=== PATIENT | male | born 1955 | race Caucasian/White ===

== ENCOUNTER → 2016-07-22 | Outpatient (CLI) | payer BC ==
[~2016-07-22] MED LIST: ALLP300T PO; FAMO40OR3 PO; HCT25T PO; METO100T5 PO; TELM40T PO
--- NOTE | 2016-07-22 11:58 | Diagnostic Imaging Report ---
PROCEDURE: US Bilateral lower extremity arterial. TECHNIQUE: Multiple real-time grayscale images are obtained through both lower extremity arterial systems with color Doppler imaging and color Doppler spectral analysis. INDICATION: Claudication. FINDINGS: In the right lower extremity, there is color flow demonstrated from the right common femoral to the dorsalis pedis and posterior tibial arteries. There are mixed triphasic and biphasic waveforms in the femoropopliteal segments and biphasic waveforms in the infrapopliteal arteries. There is slightly diminished flow velocity in the dorsalis pedis artery of 37 cm/s, otherwise the velocities range from 46-120 cm/s in the segments of the right lower extremity arteries with no evidence of significant stenosis. The grayscale images demonstrate no significant plaque. In the left lower extremity, there are no significant areas of plaque seen. There is color Doppler demonstrated in the arteries from the common femoral to the dorsalis pedis and posterior tibial arteries. There is a 2 cm long stent in the popliteal artery with normal color flow seen within its lumen. There are triphasic waveforms seen in the femoropopliteal segments with transition to biphasic waveforms in the dorsalis pedis and posterior tibial. The dorsalis pedis demonstrates diminished flow velocity of 28 cm/s with otherwise normal velocities in the more proximal arteries and the posterior tibial artery ranging from 43-120 cm/s. IMPRESSION: Slightly diminished flow velocity in the dorsalis pedis arteries bilaterally. No ultrasound evidence of high-grade focal stenosis seen. Dictated by: Dictated on workstation # [id number]
== END ==
LOC: RAD 08:44
PROVIDERS: ATTEND Nurse Practitioner
DX: I70.213 Atherosclerosis of native arteries of extremities with intermittent claudication, bilateral legs (principal)
CPT/HCPCS: 93925

== ENCOUNTER 2017-04-11 05:38 | Outpatient (CLI) | payer BC ==
[~2017-04-11] VITALS: Ht 177.8 cm; Wt 78.9 kg
[2017-04-11] MEDS ORDERED: TELM40TA3 PO (11:09)
[2017-04-11] MEDS ORDERED: METO-272 PO (11:09)
[2017-04-11] MEDS ORDERED: HYDR25TA4 PO (11:09)
[2017-04-11] MEDS ORDERED: CLOP75TA28 PO (11:09)
[2017-04-11] MEDS ORDERED: ALLO300T2 PO (11:09)
[2017-04-11] MEDS ORDERED: FAMO40TA6 PO (11:09)
== END 2017-04-11 11:14 ==
LOC: PREOP 05:38
PROVIDERS: ATTEND Surgery
DX: Z01.818 Encounter for other preprocedural examination (principal); Z86.010 Personal history of colon polyps

== ENCOUNTER 2017-04-13 10:15 | Day surgery (SDC) | payer BC ==
[~2017-04-13] VITALS: Ht 177.8 cm; Wt 78.9 kg
[~2017-04-13 10:15] MED LIST changes: +ALLO300T2 PO; +CLOP75TA28 PO; +FAMO40TA6 PO; +HYDR25TA4 PO; +METO-272 PO; +TELM40TA3 PO
[2017-04-13] MEDS ORDERED: LIDOCAINE JELLY 2% (XYLOCAINE) 5 ML TUBE MM PRN (10:30)
[2017-04-13 10:36] VITALS: BP 133/82
[2017-04-13] MEDS: NS IV 500 ML 500 ML IV PRN ×3 (10:45→14:47)
--- NOTE | 2017-04-13 11:23 | Progress Note-Pre Operative ---
Pre-Operative Progress Note H&P Reviewed The H&P was reviewed, patient examined and no changes noted. Date Seen by Provider: Apr 13, 2017 Time Seen by Provider: 11:00 Date H&P Reviewed: Apr 13, 2017 Time H&P Reviewed: 11:00 Pre-Operative Diagnosis: hx colon polyp VERO MAY MD Apr 13, 2017 11:23 am
--- NOTE | 2017-04-13 11:23 | Conscious Sedation/ASA ---
Conscious Sedation Pre-Proced Time Reviewed: 11:00 ASA Class: 2 Airway Mallampati Classification: (yocha dehe appropriate class) I. II. III, IV Lungs Heart ASA score ASA 1: a normal healthy patient ASA 2: a patient with a mild systemic disease (mid diabetes, controlled hypertension, obesity ASA 3: a patient with a severe systemic disease that limits activity (angina , COPD, prior Myocardial infarction) ASA 4: a patient with an incapacitating disease that is a constant threat to life (CHF, renal failure) ASA 5: a moribund patient not expected to survive 24 hrs. (ruptured aneurysm) ASA 6: a declared brain patient whose organs are being harvested. For emergent operations, add the letter E after the classification Grade 2 Sedation Plan: Analgesia, Amnesia, Plan communicated to team members, Discussed options with patient/fam, Discussed risks with patient/fam Note The patient is an appropriate candidate to undergo the planned procedure, sedation, and anesthesia. The patient immediately re-assessed prior to indication. VERO MAY MD Apr 13, 2017 11:23 am
[2017-04-13] MEDS ORDERED: ONDANSETRON 4 MG/2 ML (SDV) Z0FRAN IV PRN (11:30)
[2017-04-13] MEDS ORDERED: HYDROcodone/APAP 5 MG/325 MG (LORTAB) TAB PO PRN (11:30)
[2017-04-13] MEDS ORDERED: morphine INJ 10 MG/ML 1ML (SYR OR VIAL) IV PRN (11:30)
[2017-04-13] MEDS ORDERED: ACETAMINOPHEN 325 MG TABLET/CAPLET (TYLENOL) PO PRN (11:30)
[2017-04-13] MEDS ORDERED: LIDOCAINE JELLY 2% (XYLOCAINE) 5 ML TUBE ONE (12:52)
[2017-04-13] MEDS ORDERED: fentaNYL INJECTION 100 MCG/2 ML AMP ONE ×3 (12:52→14:00)
[2017-04-13] MEDS ORDERED: MIDAZOLAM 2 MG/2 ML (VERSED) VIAL ONE ×5 (12:52→13:50)
[2017-04-13] MEDS: fentaNYL INJECTION 100 MCG/2 ML AMP IVP PRN ×6 (13:07→14:10)
[2017-04-13] MEDS ORDERED: NS IV 500 ML 500 ML ONE ×2 (13:15→14:36)
[2017-04-13] MEDS: MIDAZOLAM 2 MG/2 ML (VERSED) VIAL IVP PRN ×5 (13:17→13:59)
[2017-04-13] MEDS ORDERED: PROPOFOL INJECTION 50 ML IV ONE (14:11)
--- NOTE | 2017-04-13 14:46 | Progress Note-Post Operative ---
Post-Operative Progess Note Surgeon (s)/Report Analyst (s) Surgeon VERO MAY MD Report Analyst: none Pre-Operative Diagnosis hx colon polyp Post-Operative Diagnosis chronic stage 2 ext and int hemorrhoids, rectal polyp(2mm), moderate sigmid diverticulosis, ascending polyp(3mm). Procedure & Operative Findings Date of Procedure 04/13/17 Procedure Performed/Findings Colonoscopy with bx. Anesthesia Type MAC Estimated Blood Loss Estimated blood loss (mL): minimal Specimens/Packing Specimens Removed rectal and ascending polyp VERO MAY MD Apr 13, 2017 2:46 pm
--- NOTE | 2017-04-13 14:47 | Discharge Inst-Surgical ---
D/C Lap Instructions-LALO Follow Up 5 years Activity as tolerated High Fiber Diet 25g or more per day Avoid Alcohol, Caffeine, Spicy [place] and Acid foods. Drink 64 fluid oz or more of fluids per day. Symptoms to Report: Fever over 101 degree F, Nausea/Vomiting If any problems/questions: Contact your physician or go to Emergency Room VERO MAY MD Apr 13, 2017 2:47 pm
--- NOTE | 2017-04-13 14:48 | Progress Note-Standard ---
Standard Progress Note Progress Notes/Assess & Plan Date Seen by Provider: Apr 13, 2017 Time Seen by Provider: 14:15 Progress/Assessment & Plan Called to endoscopy for rescue sedation. Patient had already received 10mg of versed and 300mcg of fentanyl when called. Propofol drip started for sedation. After approx 1.5 min of medication. Patient sedated enough to proceed with procedure. Tolerated rest of procedure well. 400 mg propofol given for procedure. Care back to Endo RN. VSS. JOSIE BAUER CRNA Apr 13, 2017 14:48
[2017-04-13 15:15] VITALS: BP 127/74
[2017-04-13 15:45] VITALS: BP 127/80
[2017-04-13 15:50] VITALS: BP 127/80
--- NOTE | 2017-04-14 02:59 | OPERATIVE REPORT ---
DATE OF SERVICE: 04/13/2017 ATTENDING PRIMARY CARE PHYSICIAN: Dr. Alcira Watters. PREOPERATIVE DIAGNOSIS: History of tubulovillous adenoma. POSTOPERATIVE DIAGNOSES: Chronic stage II external and internal hemorrhoids, polyp of the rectum 2 mm in size, moderate sigmoid diverticulosis, polyp of the ascending colon 3 mm in size. PROCEDURE: Colonoscopy with biopsy. SURGEON: Dr. May. ANESTHESIA: Monitored anesthesia care. ESTIMATED BLOOD LOSS: Minimal. FINDINGS: Chronic stage II external and internal hemorrhoids. Prostate gland was palpable and appeared normal. There was moderate sigmoid diverticulosis. Rectal polyp approximately 2 mm in size. There was a larger pedunculated polyp of the ascending colon, approximately 3 mm in size. DISPOSITION: The patient tolerated the procedure well. INDICATIONS: The patient is a 62-year-old male in need of followup colonoscopy. His last one was in 2009 where three polyps were identified, one was hyperplastic, another was a tubular adenoma and the other one was a tubulovillous adenoma. He reports that otherwise he is doing well and does not report any major issues with diarrhea, no constipation as well as no red blood per rectum or any dark tarry stools. He also does not report any family history of colon cancer. DESCRIPTION OF PROCEDURE: The patient was brought to the endoscopy suite, laid in the left lateral decubitus position. After adequate IV pain and sedating medications and monitored anesthesia care, a digital rectal examination was performed. Chronic stage II external and internal hemorrhoids were identified, which were not actually edematous nor inflamed and no bleeding. Normal sphincter tone was felt and there were no palpable masses. The endoscope was then intubated to the anus and rectum, gently insufflated. The endoscope was then advanced to the [facility] [place] in the rectum. At the level of the rectum, a polyp identified which was small approximately 2 mm in size was identified. This was biopsied and destroyed using forceps and electrocautery with visualization of good hemostasis. Endoscope was then advanced to the sigmoid colon where a moderate sigmoid diverticulosis was identified. There were no mucosal inflammatory changes to indicate any active diverticulitis. The endoscope was then advanced to the remainder of the descending, transverse, and ascending colon. At the ascending colon, a pedunculated polyp approximately 3 mm in size was identified. This was also biopsied and destroyed at the base using forceps and electrocautery with visualization of good hemostasis. The cecum appeared normal. The endoscope was then slowly withdrawn while taking a second look and suctioning of residual air with no additional findings. The patient tolerated the procedure well. We will have him continue with high fiber diet with at least 30 grams of fiber per day as well as at least 64 fluid ounces of water daily to promote soft stools on a daily basis. We will recommend a followup colonoscopy in approximately 5 years. Job ID: [id number] DocumentID: [id number] Dictated Date: 04/13/2017 14:51:24 Human Resource Assistant Date: 04/14/2017 00:38:45 Dictated By: VERO MAY MD
== END 2017-04-13 16:00 | disposition home or self-care (01) ==
LOC: ENDO 10:15
PROVIDERS: ATTEND Surgery
DX: Z12.11 Encounter for screening for malignant neoplasm of colon (principal); K63.5 Polyp of colon; K62.1 Rectal polyp; K57.20 Diverticulitis of large intestine with perforation and abscess without bleeding; K64.1 Second degree hemorrhoids; I10 Essential (primary) hypertension; I25.10 Atherosclerotic heart disease of native coronary artery without angina pectoris; K21.9 Gastro-esophageal reflux disease without esophagitis; M10.9 Gout, unspecified; F17.210 Nicotine dependence, cigarettes, uncomplicated; Z95.5 Presence of coronary angioplasty implant and graft; Z79.02 Long term (current) use of antithrombotics/antiplatelets; Z79.899 Other long term (current) drug therapy
CPT/HCPCS: 88305

== ENCOUNTER → 2018-03-28 | Outpatient (CLI) | payer BC ==
[~2018-03-28] MED LIST changes: -METO-272 PO; +METO-370 PO
--- NOTE | 2018-03-28 10:25 | Diagnostic Imaging Report ---
CT low-dose lung cancer screening chest. Indication: 10-tlne-sore smoking history. Routine images of the thorax using the low-dose lung cancer screening protocol were obtained. There are no prior studies available for comparison. There is no evidence for parenchymal lung mass. There are mild emphysematous changes involving both lungs but there is no sign of failure, pneumonia or pleural effusion to indicate an acute abnormality. The heart size is within normal limits. There are coronary artery calcifications evident. The aorta is not abnormally dilated. There is no obvious mediastinal or hilar adenopathy. The thyroid gland where visualized is unremarkable. The sections through the upper abdomen fail to show any sign of an acute abnormality. The bone windows are unremarkable for fracture or for destructive lesion. Impression: 1. There is no evidence for parenchymal lung mass. A followup CT low-dose lung cancer screening study in one year, would recommend for further evaluation. 2. There is no acute cardiopulmonary abnormality noted. 3. The heart is not enlarged, but there are coronary artery calcifications evident. Lung-RADS Category 1. Dictated by: Dictated on workstation # [id number]
== END ==
LOC: RAD 08:23
PROVIDERS: ATTEND Family Medicine
DX: Z12.2 Encounter for screening for malignant neoplasm of respiratory organs (principal); F17.210 Nicotine dependence, cigarettes, uncomplicated; I25.10 Atherosclerotic heart disease of native coronary artery without angina pectoris

== ENCOUNTER → 2018-09-22 | Outpatient (CLI) | payer BC ==
[2018-09-22 15:41] LABS: ABSOLUTE RETIC # 59 10e9/L (24-90); RETICULOCYTE % 1.04 % (0.50-2.40)
[2018-09-22 15:47] LABS: NEUTROPHILS % (MANUAL) 67 %
[2018-09-22 15:48] LABS: ANISOCYTOSIS SLIGHT; BAND NEUTROPHILS 1 %; BASOPHILS % (MANUAL) 1 %; EOSINOPHILS % (MANUAL) 0 %; LYMPHOCYTES % (MANUAL) 19 %; MONOCYTES % (MANUAL) 8 %; REACTIVE LYMPHOCYTES 4 %; SMUDGE CELLS SLIGHT
== END ==
LOC: LABNPT 15:32
PROVIDERS: ATTEND Family Medicine
DX: D75.1 Secondary polycythemia (principal)
CPT/HCPCS: 85007; 85045

== ENCOUNTER 2018-10-10 09:28 | Outpatient (RCR) | payer BC ==
[2018-10-10 10:25] LABS: BASOPHILS % (AUTO) 0 % (0-10); EOSINOPHILS # (AUTO) 0.1 10^3/uL (0.0-0.3); EOSINOPHILS % (AUTO) 1 % (0-10); HEMATOCRIT 52 % (40-54); HEMOGLOBIN 17.9 G/DL (13.3-17.7); LYMPHOCYTES # (AUTO) 1.5 X 10^3 (1.0-4.0); LYMPHOCYTES % (AUTO) 14 % (12-44); MEAN CORPUSCULAR HEMOGLOBIN 32 PG (25-34); MEAN CORPUSCULAR HGB CONC 35 G/DL (32-36); MEAN CORPUSCULAR VOLUME 93 FL (80-99); MEAN PLATELET VOLUME 9.2 FL (7.4-10.4); MONOCYTES # (AUTO) 0.7 X 10^3 (0.0-1.0); MONOCYTES % (AUTO) 7 % (0-12); NEUTROPHILS # (AUTO) 8.1 X 10^3 (1.8-7.8); NEUTROPHILS % (AUTO) 78 % (42-75); PLATELET COUNT 280 10^3/uL (130-400); RED CELL DISTRIBUTION WIDTH 13.4 % (10.0-14.5); WHITE BLOOD COUNT 10.3 10^3/uL (4.3-11.0)
[2018-10-10 10:41] LABS: ALANINE AMINOTRANSFERASE 21 U/L (0-55); ALBUMIN 4.2 GM/DL (3.2-4.5); ALKALINE PHOSPHATASE 131 U/L (40-136); BILIRUBIN,TOTAL 1.8 MG/DL (0.1-1.0); BUN/CREATININE RATIO 13; CALCIUM 9.4 MG/DL (8.5-10.1); CARBON DIOXIDE 26 MMOL/L (21-32); CHLORIDE 106 MMOL/L (98-107); CREATININE SERUM 0.83 MG/DL (0.60-1.30); GFR ESTIMATED > 60; GLUCOSE 113 MG/DL (70-105); POTASSIUM 3.3 MMOL/L (3.6-5.0); SODIUM 143 MMOL/L (135-145)
== END 2019-01-08 | disposition home or self-care (01) ==
LOC: ONC 09:28
PROVIDERS: ATTEND Internal Medicine Hematology & Oncology
DX: D58.2 Other hemoglobinopathies (principal); J44.9 Chronic obstructive pulmonary disease, unspecified; R09.02 Hypoxemia; F17.210 Nicotine dependence, cigarettes, uncomplicated; I10 Essential (primary) hypertension; K21.9 Gastro-esophageal reflux disease without esophagitis; M10.9 Gout, unspecified; I70.202 Unspecified atherosclerosis of native arteries of extremities, left leg; Z95.820 Peripheral vascular angioplasty status with implants and grafts; Z79.02 Long term (current) use of antithrombotics/antiplatelets; Z79.899 Other long term (current) drug therapy
CPT/HCPCS: 36415; 80053; 81270; 85025; 99214

== ENCOUNTER 2019-01-15 08:49 | Outpatient (RCR) | payer BC ==
[2019-01-15 09:05] LABS: BASOPHILS # (AUTO) 0.1 10^3/uL (0.0-0.1); BASOPHILS % (AUTO) 1 % (0-10); EOSINOPHILS # (AUTO) 0.2 10^3/uL (0.0-0.3); EOSINOPHILS % (AUTO) 2 % (0-10); HEMATOCRIT 51 % (40-54); HEMOGLOBIN 17.2 G/DL (13.3-17.7); LYMPHOCYTES # (AUTO) 2.5 X 10^3 (1.0-4.0); LYMPHOCYTES % (AUTO) 29 % (12-44); MEAN CORPUSCULAR HEMOGLOBIN 32 PG (25-34); MEAN CORPUSCULAR HGB CONC 34 G/DL (32-36); MEAN CORPUSCULAR VOLUME 93 FL (80-99); MEAN PLATELET VOLUME 9.4 FL (7.4-10.4); MONOCYTES # (AUTO) 0.8 X 10^3 (0.0-1.0); MONOCYTES % (AUTO) 9 % (0-12); NEUTROPHILS # (AUTO) 5.3 X 10^3 (1.8-7.8); NEUTROPHILS % (AUTO) 60 % (42-75); PLATELET COUNT 232 10^3/uL (130-400); RED CELL DISTRIBUTION WIDTH 13.2 % (10.0-14.5); WHITE BLOOD COUNT 8.9 10^3/uL (4.3-11.0)
== END 2019-04-15 | disposition home or self-care (01) ==
LOC: ONC 08:49
PROVIDERS: ATTEND Internal Medicine Hematology & Oncology
DX: D58.2 Other hemoglobinopathies (principal); J44.9 Chronic obstructive pulmonary disease, unspecified; R09.02 Hypoxemia; F17.210 Nicotine dependence, cigarettes, uncomplicated; I10 Essential (primary) hypertension; K21.9 Gastro-esophageal reflux disease without esophagitis; M10.9 Gout, unspecified; I70.202 Unspecified atherosclerosis of native arteries of extremities, left leg; Z95.820 Peripheral vascular angioplasty status with implants and grafts; Z79.02 Long term (current) use of antithrombotics/antiplatelets; Z79.899 Other long term (current) drug therapy
CPT/HCPCS: 36415; 85025

== ENCOUNTER 2019-01-15 08:54 | Outpatient (RCR) | payer BC | END 2019-04-15 | disposition home or self-care (01) | LOC: ONC 08:54 | PROVIDERS: ATTEND Internal Medicine Hematology & Oncology | DX: D58.2 Other hemoglobinopathies (principal); J44.9 Chronic obstructive pulmonary disease, unspecified; R09.02 Hypoxemia; F17.210 Nicotine dependence, cigarettes, uncomplicated; I10 Essential (primary) hypertension; K21.9 Gastro-esophageal reflux disease without esophagitis; M10.9 Gout, unspecified; I70.202 Unspecified atherosclerosis of native arteries of extremities, left leg; Z95.820 Peripheral vascular angioplasty status with implants and grafts; Z79.02 Long term (current) use of antithrombotics/antiplatelets; Z79.899 Other long term (current) drug therapy | CPT/HCPCS: 99213 ==

== ENCOUNTER → 2020-01-15 | Outpatient (CLI) | payer BC ==
[~2020-01-15] MED LIST changes: -METO-370 PO; +METO50TA7 PO; -TELM40TA3 PO; +TELM40TA6 PO
[2020-01-15 10:04] LABS: BASOPHILS % (AUTO) 0 % (0-10); EOSINOPHILS # (AUTO) 0.1 10^3/uL (0.0-0.3); EOSINOPHILS % (AUTO) 1 % (0-10); HEMATOCRIT 50 % (40-54); HEMOGLOBIN 17.2 G/DL (13.3-17.7); LYMPHOCYTES # (AUTO) 2.5 X 10^3 (1.0-4.0); LYMPHOCYTES % (AUTO) 25 % (12-44); MEAN CORPUSCULAR HEMOGLOBIN 33 PG (25-34); MEAN CORPUSCULAR HGB CONC 34 G/DL (32-36); MEAN CORPUSCULAR VOLUME 96 FL (80-99); MEAN PLATELET VOLUME 9.4 FL (7.4-10.4); MONOCYTES % (AUTO) 10 % (0-12); NEUTROPHILS # (AUTO) 6.3 X 10^3 (1.8-7.8); NEUTROPHILS % (AUTO) 63 % (42-75); PLATELET COUNT 245 10^3/uL (130-400); RED CELL DISTRIBUTION WIDTH 14.2 % (10.0-14.5); WHITE BLOOD COUNT 10.1 10^3/uL (4.3-11.0)
[2020-01-15 10:23] LABS: ALANINE AMINOTRANSFERASE 30 U/L (0-55); ALBUMIN 4.3 GM/DL (3.2-4.5); ALKALINE PHOSPHATASE 135 U/L (40-136); BILIRUBIN,TOTAL 2.4 MG/DL (0.1-1.0); BUN/CREATININE RATIO 8; CALCIUM 9.5 MG/DL (8.5-10.1); CARBON DIOXIDE 24 MMOL/L (21-32); CHLORIDE 104 MMOL/L (98-107); CREATININE SERUM 1.13 MG/DL (0.60-1.30); GFR ESTIMATED > 60; GLUCOSE 116 MG/DL (70-105); POTASSIUM 3.8 MMOL/L (3.6-5.0); SODIUM 140 MMOL/L (135-145); TOTAL PROTEIN 7.2 GM/DL (6.4-8.2)
== END ==
LOC: EDSTATUS 04-16 15:50 → ONC 09:46
PROVIDERS: ATTEND Internal Medicine Hematology & Oncology
DX: J44.9 Chronic obstructive pulmonary disease, unspecified (principal); D58.2 Other hemoglobinopathies; I10 Essential (primary) hypertension; K21.9 Gastro-esophageal reflux disease without esophagitis; M10.9 Gout, unspecified; E80.7 Disorder of bilirubin metabolism, unspecified; F17.210 Nicotine dependence, cigarettes, uncomplicated; Z86.79 Personal history of other diseases of the circulatory system; Z95.5 Presence of coronary angioplasty implant and graft
CPT/HCPCS: 80053; 85025; G0463; 99213

== ENCOUNTER → 2021-01-20 | Outpatient (CLI) | payer MEDICARE, BC ==
[2021-01-20 13:04] LABS: BASOPHILS % (AUTO) 0 % (0-10); EOSINOPHILS # (AUTO) 0.1 10^3/uL (0.0-0.3); EOSINOPHILS % (AUTO) 1 % (0-10); HEMATOCRIT 56 % (40-54); HEMOGLOBIN 19.1 g/dL (13.3-17.7); LYMPHOCYTES # (AUTO) 2.1 10^3/uL (1.0-4.0); LYMPHOCYTES % (AUTO) 21 % (12-44); MEAN CORPUSCULAR HEMOGLOBIN 34 pg (25-34); MEAN CORPUSCULAR HGB CONC 34 g/dL (32-36); MEAN CORPUSCULAR VOLUME 98 fL (80-99); MONOCYTES # (AUTO) 0.9 10^3/uL (0.0-1.0); MONOCYTES % (AUTO) 8 % (0-12); NEUTROPHILS # (AUTO) 7.1 10^3/uL (1.8-7.8); NEUTROPHILS % (AUTO) 69 % (42-75); PLATELET COUNT 262 10^3/uL (130-400); WHITE BLOOD COUNT 10.2 10^3/uL (4.3-11.0)
[2021-01-20 13:24] LABS: ALBUMIN 4.4 GM/DL (3.2-4.5); BILIRUBIN,TOTAL 3.3 MG/DL (0.1-1.0); POTASSIUM 3.5 MMOL/L (3.6-5.0); TOTAL PROTEIN 7.7 GM/DL (6.4-8.2)
== END ==
LOC: ONC 13:09
PROVIDERS: ATTEND Internal Medicine Hematology & Oncology
DX: D72.829 Elevated white blood cell count, unspecified (principal); D58.2 Other hemoglobinopathies; J44.9 Chronic obstructive pulmonary disease, unspecified; I10 Essential (primary) hypertension; K21.9 Gastro-esophageal reflux disease without esophagitis; M10.9 Gout, unspecified; F17.210 Nicotine dependence, cigarettes, uncomplicated; Z86.79 Personal history of other diseases of the circulatory system; Z95.5 Presence of coronary angioplasty implant and graft
CPT/HCPCS: 80053; 81256; 82728; 83540; 83550; 85025; G0463; 99213

== ENCOUNTER → 2021-04-14 | Outpatient (CLI) | payer MEDICARE, BC ==
[2021-04-14 10:34] LABS: BASOPHILS # (AUTO) 0.1 10^3/uL (0.0-0.1); BASOPHILS % (AUTO) 1 % (0-10); EOSINOPHILS # (AUTO) 0.1 10^3/uL (0.0-0.3); EOSINOPHILS % (AUTO) 1 % (0-10); HEMATOCRIT 46 % (40-54); HEMOGLOBIN 15.7 g/dL (13.3-17.7); LYMPHOCYTES # (AUTO) 2.6 10^3/uL (1.0-4.0); LYMPHOCYTES % (AUTO) 27 % (12-44); MEAN CORPUSCULAR HEMOGLOBIN 33 pg (25-34); MEAN CORPUSCULAR HGB CONC 34 g/dL (32-36); MEAN CORPUSCULAR VOLUME 99 fL (80-99); MEAN PLATELET VOLUME 9.2 fL (9.0-12.2); MONOCYTES # (AUTO) 0.8 10^3/uL (0.0-1.0); MONOCYTES % (AUTO) 8 % (0-12); NEUTROPHILS % (AUTO) 62 % (42-75); PLATELET COUNT 335 10^3/uL (130-400); WHITE BLOOD COUNT 9.7 10^3/uL (4.3-11.0)
[2021-04-14 10:56] LABS: ALBUMIN 4.2 GM/DL (3.2-4.5); BILIRUBIN,TOTAL 1.5 MG/DL (0.1-1.0); CALCIUM 9.6 MG/DL (8.5-10.1); CREATININE SERUM 1.14 MG/DL (0.60-1.30); POTASSIUM 3.8 MMOL/L (3.6-5.0); TOTAL PROTEIN 7.1 GM/DL (6.4-8.2)
== END ==
LOC: ONC 10:16
PROVIDERS: ATTEND Internal Medicine Hematology & Oncology
DX: R71.8 Other abnormality of red blood cells (principal); J44.9 Chronic obstructive pulmonary disease, unspecified; I10 Essential (primary) hypertension; K21.9 Gastro-esophageal reflux disease without esophagitis; Z86.79 Personal history of other diseases of the circulatory system; Z98.61 Coronary angioplasty status; Z87.891 Personal history of nicotine dependence
CPT/HCPCS: 80053; 82728; 83540; 83550; 85025; G0463; 99213

== ENCOUNTER 2021-05-13 05:37 | Outpatient (CLI) | payer MEDICARE, BC ==
[~2021-05-13] VITALS: Ht 177.8 cm; Wt 76.7 kg
[2021-05-13] MEDS ORDERED: AMLO-251 PO (13:40)
== END 2021-05-13 15:13 | disposition home or self-care (01) ==
LOC: PREOP 05:37
PROVIDERS: ATTEND Surgery
DX: Z01.818 Encounter for other preprocedural examination (principal)

== ENCOUNTER 2021-05-20 10:50 | Day surgery (SDC) | payer MEDICARE, BC ==
[~2021-05-20] VITALS: Ht 177.8 cm; Wt 76.7 kg
[2021-05-20] VITALS (27 sets, daily range): BP systolic 80–159; BP diastolic 50–81
[~2021-05-20 10:50] MED LIST changes: +AMLO-251 PO
[2021-05-20] MEDS ORDERED: MIDAZOLAM 5 MG/5 ML (VERSED) VIAL IV ONE (11:00)
[2021-05-20] MEDS ORDERED: LIDOCAINE JELLY 2% 6 ML SYRINGE MM PRN (11:00)
[2021-05-20] MEDS ORDERED: fentaNYL INJ 100 MCG/2 ML AMP IVP ONE (11:00)
[2021-05-20] MEDS ORDERED: NS IV 500 ML 500 ML ONE (11:05)
[2021-05-20] MEDS: NS IV 500 ML 500 ML IV PRN ×2 (11:20→12:45)
[2021-05-20] MEDS ORDERED: ONDANSETRON 4 MG (ZOFRAN) ORAL DISSOLVE TAB PO PRN (11:30)
[2021-05-20] MEDS ORDERED: ONDANSETRON 4 MG/2 ML (SDV) Z0FRAN IVP PRN (11:30)
--- NOTE | 2021-05-20 11:30 | Conscious Sedation/ASA ---
Conscious Sedation Pre-Proced Time 11:15 ASA Score 2 For ASA 3 and 4: Consider anesthesia and medical clearance. Also, for patients with a history of failed moderate sedation consider anesthesia. Airway Lungs Heart ASA score ASA 1: a normal healthy patient ASA 2: a patient with a mild systemic disease (mid diabetes, controlled hypertension, obesity ASA 3: a patient with a severe systemic disease that limits activity (angina, COPD, prior Myocardial infarction) ASA 4: a patient with an incapacitating disease that is a constant threat to life (CHF, renal failure) ASA 5: a moribund patient not expected to survive 24 hrs. (ruptured aneurysm) ASA 6: a declared brain- patient whose organs are being harvested. For emergent operations, add the letter E after the classification Mallampati Classification Grade 2 Sedation Plan Analgesia, Amnesia, Plan communicated to team members, Discussed options with patient/fam, Discussed risks with patient/fam The patient is an appropriate candidate to undergo the planned procedure, sedation, and anesthesia. The patient immediately re-assessed prior to indication. VERO MAY MD May 20, 2021 11:30
--- NOTE | 2021-05-20 11:30 | Progress Note-Pre Operative ---
Pre-Operative Progress Note H&P Reviewed The H&P was reviewed, patient examined and no changes noted. Date Seen by Provider: May 20, 2021 Time Seen by Provider: 11:15 Date H&P Reviewed: May 20, 2021 Time H&P Reviewed: 11:15 Pre-Operative Diagnosis: screening/hx polyp VERO MAY MD May 20, 2021 11:30
--- NOTE | 2021-05-20 11:31 | Discharge Inst-Surgical ---
D/C Lap Instructions-LALO Follow Up Activity as tolerated High Fiber Diet 25g or more per day Avoid Alcohol, Caffeine, Spicy [place] and Acid foods. Drink 64 fluid oz or more of fluids per day. Symptoms to Report: Fever over 101 degree F, Nausea/Vomiting If any problems/questions: Contact your physician or go to Emergency Room VERO MAY MD May 20, 2021 11:31
[2021-05-20] MEDS ORDERED: MIDAZOLAM 5 MG/5 ML (VERSED) VIAL ONE (12:22)
[2021-05-20] MEDS ORDERED: fentaNYL INJ 100 MCG/2 ML AMP ONE (12:22)
--- NOTE | 2021-05-20 13:05 | Progress Note-Post Operative ---
Post-Operative Progess Note Surgeon (s)/Diesel Engine Mechanic (s) Surgeon VERO MAY MD Diesel Engine Mechanic: none Pre-Operative Diagnosis screening/hx polyp Post-Operative Diagnosis mild stage 2 chronic ext and int hemorrhoids, small HP rectum(2mm), moderate sigmoid diverticulosis. Procedure & Operative Findings Date of Procedure 05/20/21 Procedure Performed/Findings colonoscopy with bx. Anesthesia Type cs Estimated Blood Loss Estimated blood loss (mL): minimal Specimens/Packing Specimens Removed rectal polyp VERO MAY MD May 20, 2021 13:05
--- NOTE | 2021-05-20 19:23 | OPERATIVE REPORT ---
DATE OF SERVICE: 05/20/2021 ATTENDING PRIMARY CARE PHYSICIAN: Dr. Fili Rodriguez. PREOPERATIVE DIAGNOSIS: Screening colonoscopy with history of colon polyp. POSTOPERATIVE DIAGNOSES: Mild stage II external and internal hemorrhoids, small polyp of the rectum, moderate sigmoid diverticulosis. PROCEDURE: Colonoscopy with biopsy. SURGEON: Vero May MD ANESTHESIA: Conscious sedation. ESTIMATED BLOOD LOSS: Minimal. FINDINGS: Mild stage II external and internal hemorrhoids, small polyp of the rectum, moderate sigmoid diverticulosis. DISPOSITION: The patient tolerated the procedure well. INDICATIONS: The patient is a 66-year-old male referred over to us for screening colonoscopy. He had had a colonoscopy approximately 5 years ago where hyperplastic polyp was identified. He states that he is otherwise doing well, does not report any major issues with diarrhea nor constipation as well as no red blood per rectum nor any dark tarry stools. He also does not report any family history of colon cancer. DESCRIPTION OF PROCEDURE: The patient was brought to the endoscopy suite, laid in the left lateral decubitus position. After adequate IV pain and sedative medications and conscious sedation anesthesia, a digital rectal examination was performed. Mild stage II chronic external and internal hemorrhoids were identified, which were not actively edematous nor inflamed and no bleeding. Normal sphincter tone was felt and there were no palpable masses. Prostate gland was palpable and appeared to be normal. The endoscope was then intubated and anus and rectum gently insufflated. A small hyperplastic polyp approximately 2 mm in size was identified. This was biopsied and destroyed with forceps to visualization of good hemostasis. The endoscope was then advanced through the sigmoid colon where a moderate sigmoid diverticulosis identified as well as a tortuous sigmoid colon identified. There were no mucosal inflammatory changes to indicate any active diverticulitis. The endoscope was then advanced to the remainder of the descending, transverse and ascending colon to the cecum, which were normal. No other lesions identified. The endoscope was then slowly withdrawn while taking a second look and suctioning of residual air with no additional findings. The patient tolerated the procedure well. We will recommend the necessary lifestyle and dietary accommodation including addition of a fiber supplement, which should equal or exceed 30 grams daily as well as significant amounts of water to promote soft stools on a daily basis. The polyps that he has had appeared to be benign hyperplastic polyps and if this is verified by pathology and he is asymptomatic, he does not need another colonoscopy for another 10 years. Job ID: [id number] DocumentID: [id number] Dictated Date: 05/20/2021 12:55:58 Office Machine Embossograph Operator Date: 05/20/2021 19:23:12 Dictated By: VERO MAY MD
== END 2021-05-20 15:00 | disposition home or self-care (01) ==
LOC: ENDO 10:50
PROVIDERS: ATTEND Surgery
DX: Z12.11 Encounter for screening for malignant neoplasm of colon (principal); K64.1 Second degree hemorrhoids; K64.4 Residual hemorrhoidal skin tags; D12.8 Benign neoplasm of rectum; K57.30 Diverticulosis of large intestine without perforation or abscess without bleeding; Z79.899 Other long term (current) drug therapy; Z79.02 Long term (current) use of antithrombotics/antiplatelets; Z86.010 Personal history of colon polyps

== ENCOUNTER → 2021-09-25 | Outpatient (CLI) | payer MEDICARE, BC ==
[2021-09-25 09:10] LABS: BASOPHILS # (AUTO) 0.1 10^3/uL (0.0-0.1); BASOPHILS % (AUTO) 1 % (0-10); EOSINOPHILS # (AUTO) 0.2 10^3/uL (0.0-0.3); EOSINOPHILS % (AUTO) 2 % (0-10); HEMATOCRIT 53 % (40-54); HEMOGLOBIN 17.9 g/dL (13.3-17.7); LYMPHOCYTES # (AUTO) 1.9 10^3/uL (1.0-4.0); LYMPHOCYTES % (AUTO) 23 % (12-44); MEAN CORPUSCULAR HEMOGLOBIN 33 pg (25-34); MEAN CORPUSCULAR HGB CONC 34 g/dL (32-36); MEAN CORPUSCULAR VOLUME 98 fL (80-99); MEAN PLATELET VOLUME 9.1 fL (9.0-12.2); MONOCYTES # (AUTO) 0.8 10^3/uL (0.0-1.0); MONOCYTES % (AUTO) 10 % (0-12); NEUTROPHILS # (AUTO) 5.5 10^3/uL (1.8-7.8); NEUTROPHILS % (AUTO) 64 % (42-75); PLATELET COUNT 279 10^3/uL (130-400); WHITE BLOOD COUNT 8.5 10^3/uL (4.3-11.0)
[2021-09-25 09:29] LABS: ALBUMIN 4.2 GM/DL (3.2-4.5); BILIRUBIN,TOTAL 3.1 MG/DL (0.1-1.0); CALCIUM 9.2 MG/DL (8.5-10.1); CREATININE SERUM 1.12 MG/DL (0.60-1.30); POTASSIUM 3.4 MMOL/L (3.6-5.0); TOTAL PROTEIN 7.1 GM/DL (6.4-8.2)
== END ==
LOC: ONC 08:54
PROVIDERS: ATTEND Internal Medicine Hematology & Oncology
DX: D58.2 Other hemoglobinopathies (principal); J44.9 Chronic obstructive pulmonary disease, unspecified; I10 Essential (primary) hypertension; K21.9 Gastro-esophageal reflux disease without esophagitis; Z95.5 Presence of coronary angioplasty implant and graft; F17.210 Nicotine dependence, cigarettes, uncomplicated
CPT/HCPCS: 36415; 80053; 82728; 83540; 83550; 85025

== ENCOUNTER → 2022-03-24 | Outpatient (CLI) | payer MEDICARE, BC ==
[2022-03-24 13:26] LABS: BASOPHILS # (AUTO) 0.1 10^3/uL (0.0-0.1); BASOPHILS % (AUTO) 1 % (0-10); EOSINOPHILS # (AUTO) 0.1 10^3/uL (0.0-0.3); EOSINOPHILS % (AUTO) 1 % (0-10); HEMATOCRIT 52 % (40-54); HEMOGLOBIN 17.8 g/dL (13.3-17.7); LYMPHOCYTES % (AUTO) 19 % (12-44); MEAN CORPUSCULAR HEMOGLOBIN 34 pg (25-34); MEAN CORPUSCULAR HGB CONC 34 g/dL (32-36); MEAN CORPUSCULAR VOLUME 98 fL (80-99); MEAN PLATELET VOLUME 9.2 fL (9.0-12.2); MONOCYTES # (AUTO) 0.8 10^3/uL (0.0-1.0); MONOCYTES % (AUTO) 8 % (0-12); NEUTROPHILS # (AUTO) 7.4 10^3/uL (1.8-7.8); NEUTROPHILS % (AUTO) 71 % (42-75); PLATELET COUNT 281 10^3/uL (130-400); WHITE BLOOD COUNT 10.5 10^3/uL (4.3-11.0)
[2022-03-24 13:53] LABS: ALBUMIN 3.9 GM/DL (3.2-4.5); BILIRUBIN,TOTAL 1.9 MG/DL (0.1-1.0); CALCIUM 9.3 MG/DL (8.5-10.1); CREATININE SERUM 1.14 MG/DL (0.60-1.30); POTASSIUM 3.6 MMOL/L (3.6-5.0); TOTAL PROTEIN 6.9 GM/DL (6.4-8.2)
== END ==
LOC: ONC 12:53
PROVIDERS: ATTEND Internal Medicine Hematology & Oncology
DX: D58.2 Other hemoglobinopathies (principal); I10 Essential (primary) hypertension; K21.9 Gastro-esophageal reflux disease without esophagitis; J44.9 Chronic obstructive pulmonary disease, unspecified; F17.210 Nicotine dependence, cigarettes, uncomplicated; M10.9 Gout, unspecified
CPT/HCPCS: 80053; 85025; G0463; 36415; 99213

== ENCOUNTER → 2022-09-17 | Outpatient (RCR) | payer MEDICARE, OTHER ==
[2022-09-17 10:15] LABS: BASOPHILS # (AUTO) 0.1 10^3/uL (0.0-0.1); BASOPHILS % (AUTO) 1 % (0-10); EOSINOPHILS # (AUTO) 0.2 10^3/uL (0.0-0.3); EOSINOPHILS % (AUTO) 2 % (0-10); HEMATOCRIT 38 % (40-54); HEMOGLOBIN 11.9 g/dL (13.3-17.7); LYMPHOCYTES # (AUTO) 1.9 10^3/uL (1.0-4.0); LYMPHOCYTES % (AUTO) 16 % (12-44); MEAN CORPUSCULAR HEMOGLOBIN 27 pg (25-34); MEAN CORPUSCULAR HGB CONC 32 g/dL (32-36); MEAN CORPUSCULAR VOLUME 85 fL (80-99); MEAN PLATELET VOLUME 9.8 fL (9.0-12.2); MONOCYTES # (AUTO) 0.9 10^3/uL (0.0-1.0); MONOCYTES % (AUTO) 8 % (0-12); NEUTROPHILS # (AUTO) 8.4 10^3/uL (1.8-7.8); NEUTROPHILS % (AUTO) 73 % (42-75); PLATELET COUNT 296 10^3/uL (130-400); WHITE BLOOD COUNT 11.4 10^3/uL (4.3-11.0)
[2022-09-17 10:36] LABS: ALBUMIN 3.7 GM/DL (3.2-4.5); BILIRUBIN,TOTAL 1.5 MG/DL (0.1-1.0); CALCIUM 8.6 MG/DL (8.5-10.1); CREATININE SERUM 1.07 MG/DL (0.60-1.30); POTASSIUM 3.3 MMOL/L (3.6-5.0); TOTAL PROTEIN 6.6 GM/DL (6.4-8.2)
== END | disposition home or self-care (01) ==
LOC: ONC 10:00
PROVIDERS: ATTEND Internal Medicine Hematology & Oncology
DX: D58.2 Other hemoglobinopathies (principal); K21.9 Gastro-esophageal reflux disease without esophagitis; I10 Essential (primary) hypertension; E80.7 Disorder of bilirubin metabolism, unspecified; F17.210 Nicotine dependence, cigarettes, uncomplicated; Z86.79 Personal history of other diseases of the circulatory system; Z87.39 Personal history of other diseases of the musculoskeletal system and connective tissue
CPT/HCPCS: 36415; 80053; 82728; 83540; 83550; 85025

== ENCOUNTER 2022-09-23 08:54 | Outpatient (RCR) | payer MEDICARE, OTHER | END 2022-10-17 | LOC: ONC 08:54 | PROVIDERS: ATTEND Internal Medicine Hematology & Oncology | DX: D58.2 Other hemoglobinopathies (principal); M10.9 Gout, unspecified; K21.9 Gastro-esophageal reflux disease without esophagitis; I10 Essential (primary) hypertension; J44.9 Chronic obstructive pulmonary disease, unspecified; F17.210 Nicotine dependence, cigarettes, uncomplicated; Z95.820 Peripheral vascular angioplasty status with implants and grafts ==

== ENCOUNTER 2022-10-20 11:38 | Outpatient (RCR) | payer MEDICARE, OTHER ==
[2022-10-18 09:54] LABS: BASOPHILS # (AUTO) 0.1 10^3/uL (0.0-0.1); BASOPHILS % (AUTO) 1 % (0-10); EOSINOPHILS # (AUTO) 0.2 10^3/uL (0.0-0.3); EOSINOPHILS % (AUTO) 2 % (0-10); HEMATOCRIT 41 % (40-54); HEMOGLOBIN 12.5 g/dL (13.3-17.7); LYMPHOCYTES # (AUTO) 1.6 10^3/uL (1.0-4.0); LYMPHOCYTES % (AUTO) 20 % (12-44); MEAN CORPUSCULAR HEMOGLOBIN 25 pg (25-34); MEAN CORPUSCULAR HGB CONC 30 g/dL (32-36); MEAN CORPUSCULAR VOLUME 84 fL (80-99); MONOCYTES # (AUTO) 0.7 10^3/uL (0.0-1.0); MONOCYTES % (AUTO) 8 % (0-12); NEUTROPHILS # (AUTO) 5.7 10^3/uL (1.8-7.8); NEUTROPHILS % (AUTO) 69 % (42-75); PLATELET COUNT 333 10^3/uL (130-400); WHITE BLOOD COUNT 8.2 10^3/uL (4.3-11.0)
[2022-10-18 10:19] LABS: ALBUMIN 4.2 GM/DL (3.2-4.5); BILIRUBIN,TOTAL 1.4 MG/DL (0.1-1.0); CALCIUM 8.9 MG/DL (8.5-10.1); CREATININE SERUM 1.29 MG/DL (0.60-1.30); POTASSIUM 3.8 MMOL/L (3.6-5.0); TOTAL PROTEIN 7.3 GM/DL (6.4-8.2)
== END 2022-11-17 | disposition home or self-care (01) ==
LOC: ONC 11:38
PROVIDERS: ATTEND Internal Medicine Hematology & Oncology
DX: D58.2 Other hemoglobinopathies (principal); D72.829 Elevated white blood cell count, unspecified; I10 Essential (primary) hypertension; K21.9 Gastro-esophageal reflux disease without esophagitis; M10.9 Gout, unspecified; J44.9 Chronic obstructive pulmonary disease, unspecified; Z87.891 Personal history of nicotine dependence; Z79.899 Other long term (current) drug therapy
CPT/HCPCS: 36415; 80053; 82728; 83540; 83550; 85025

== ENCOUNTER 2022-11-29 10:03 | Outpatient (RCR) | payer MEDICARE, OTHER ==
[2022-11-19 09:12] LABS: BASOPHILS # (AUTO) 0.1 10^3/uL (0.0-0.1); BASOPHILS % (AUTO) 1 % (0-10); EOSINOPHILS # (AUTO) 0.2 10^3/uL (0.0-0.3); EOSINOPHILS % (AUTO) 2 % (0-10); HEMATOCRIT 43 % (40-54); HEMOGLOBIN 12.9 g/dL (13.3-17.7); LYMPHOCYTES # (AUTO) 2.1 10^3/uL (1.0-4.0); LYMPHOCYTES % (AUTO) 20 % (12-44); MEAN CORPUSCULAR HEMOGLOBIN 25 pg (25-34); MEAN CORPUSCULAR HGB CONC 30 g/dL (32-36); MEAN CORPUSCULAR VOLUME 83 fL (80-99); MEAN PLATELET VOLUME 9.8 fL (9.0-12.2); MONOCYTES % (AUTO) 9 % (0-12); NEUTROPHILS # (AUTO) 7.4 10^3/uL (1.8-7.8); NEUTROPHILS % (AUTO) 69 % (42-75); PLATELET COUNT 337 10^3/uL (130-400); WHITE BLOOD COUNT 10.7 10^3/uL (4.3-11.0)
[2022-11-19 09:20] LABS: POTASSIUM 3.6 MMOL/L (3.6-5.0)
[2022-11-19 09:21] LABS: CALCIUM 9.2 MG/DL (8.5-10.1)
[2022-11-19 09:24] LABS: BILIRUBIN,TOTAL 1.4 MG/DL (0.1-1.0)
[2022-11-19 09:26] LABS: CREATININE SERUM 1.22 MG/DL (0.60-1.30)
== END 2022-12-17 | disposition home or self-care (01) ==
LOC: ONC 10:03
PROVIDERS: ATTEND Internal Medicine Hematology & Oncology
DX: D58.2 Other hemoglobinopathies (principal); I10 Essential (primary) hypertension; K21.9 Gastro-esophageal reflux disease without esophagitis; M10.9 Gout, unspecified; J44.9 Chronic obstructive pulmonary disease, unspecified; Z87.891 Personal history of nicotine dependence
CPT/HCPCS: 80053; 82728; 83540; 83550; 85025